=== PATIENT | male | born 1990 | race African-American/Black ===

== ENCOUNTER 2019-04-07 23:25 | Emergency (ER) | payer MEDICAID, OTHER ==
[~2019-04-07] VITALS: Ht 182.9 cm; Wt 100.1 kg
[2019-04-08] MEDS ORDERED: MORPHINE SULFATE 10 MG/ML CPJ IM ONE (01:00)
[2019-04-08] MEDS ORDERED: ONDANSETRON 4MG ODT PO ONE (01:00)
[2019-04-08 02:45] LABS: CLARITY URINE CLEAR (CLEAR); COLOR URINE YELLOW (YELLOW); KETONES URINE TRACE (NEGATIVE); LEUKOCYTE ESTERASE URINE 2+ (NEGATIVE); NITRITE URINE NEGATIVE (NEGATIVE); OCCULT BLOOD URINE NEGATIVE (NEGATIVE); PROTEIN URINE NEGATIVE (NEGATIVE); SPECIFIC GRAVITY URINE 1.026 (1.005-1.030)
[2019-04-08] MEDS ORDERED: CEPHALEXIN 250MG CAPSULE PO ONE (03:00)
[2019-04-08 03:19] VITALS: BP 18/79
[2019-04-11 04:20] LABS: CHLAMYDIA TRACHOMATIS NAA Negative (Negative); NEISSERIA GONORRHOEAE NAA Negative (Negative)
== END 2019-04-08 03:46 | disposition home or self-care (01) ==
LOC: ER 23:25
DX: N45.1 Epididymitis (principal); R03.0 Elevated blood-pressure reading, without diagnosis of hypertension
CPT/HCPCS: 76870; 81003; 87086; 87491; 87591; 93976; 96372; 99284; J2270; Q0162